=== PATIENT | female | born 1975 | race Caucasian/White ===

== ENCOUNTER 2023-02-28 22:49 | Emergency (ER) | payer BC, SELFPAY ==
--- NOTE | ~2023-02-28 | XR_ITS ---
EXAMINATION: XR HAND, LEFT CLINICAL INFORMATION: Status post ORIF left thumb COMPARISON: None available. TECHNIQUE: PA, lateral, and oblique views of the left hand. FINDINGS: There are 2 wires traversing the first metacarpophalangeal joint. Hardware appears intact. Osseous alignment throughout the hand is anatomic. No acute fracture is seen. No significant focal soft tissue abnormality identified. XR/XR hand LT 2V IMPRESSION: Wires traversing the first metacarpophalangeal joint. No additional acute findings identified.
[2023-02-28 22:51] VITALS: BP 126/88; PULSE 108; RESP 18; TEMP 36.5; O2SAT 98; BMI 39.1
[2023-03-01 00:47] VITALS: BP 122/77; PULSE 82; RESP 17; TEMP 36.4; O2SAT 100
--- NOTE | 2023-03-01 01:18 | ED_ITS ---
HPI - General Adult General Chief complaint: General Medical Stated complaint: pins are protruding skin from rec. surgery Time Seen by Provider: 03/01/23 01:18 Source: patient Mode of arrival: ambulatory Limitations: no limitations History of Present Illness HPI narrative: Patient had ORIF left thumb 4 weeks ago came from [place] as she feels wire is protruding under the skin unable to wear the splint and has pain no recent injury Related Data Previous Rx's Medication Instructions Recorded oxycodone-acetaminophen 5 mg-325 1 tab PO Q6H PRN pain #20 tabs 03/01/23 mg tablet (Percocet) Allergies Allergy/AdvReac Type Severity Reaction Status Date / Time No Known Allergies Allergy Verified 03/01/23 01:16 Review of Systems Review of Systems: Yes all other systems are reviewed and are negative [facility] Social History Social History Alcohol intake: never Smoked in Last 30 Days: No Use of substances other than those prescribed or required for medical reasons: No Advance Directives: No Advance Directives Information Provided: Yes Physical Exam ED Vital Signs: Vital Signs - 24 hr 02/28/23 22:51 03/01/23 00:47 Temperature 97.7 F 97.6 F Pulse Rate 108 H 82 Respiratory Rate 18 17 Blood Pressure 126/88 122/77 Pulse Oximetry 98 100 Oxygen Delivery Method Room Air BMI result Body Mass Index 39.1 Extrem Other: Tender to touch at the base of proximal phalanx of left thumb no signs of infection neurovascular intact Medications Administered Discontinued Medications Generic Name Dose Route Start Last Admin Trade Name Freq PRN Reason Stop Dose Admin Oxycodone HCl 10 mg 03/01/23 01:42 03/01/23 01:49 Oxycodone Hcl Immed Release 5 Mg Tablet PO 03/01/23 01:43 10 mg ONCE ONE Administration Medical Decision Making Medical Decision Making MDM Narrative: Dressing applied with soft padding at the site of ORIF left thumb pain since place patient had will be following with surgeon next week Discharge Plan Discharge Clinical Impression: Pain of left thumb Patient Disposition: Home, Self-Care Instructions: Thumb Fracture (ED) Additional Instructions: Follow-up with your surgeon next week Wear the splint and take pain medication as prescribed Prescriptions: New oxycodone-acetaminophen [Percocet] 5-325 mg tablet 1 tab PO Q6H PRN (Reason: pain) Qty: 20 0RF Rx Instructions: Partial Fill upon patient request. Interventions: ED Discharge Assessment Last Done: 03/01/23 01:51 Discharge Date/Time: 03/01/23 01:58
[2023-03-01] MEDS: oxyCODONE HCl Immed Release 5 MG TABLET 10 MG PO (01:49)
== END 2023-03-01 01:58 | disposition home or self-care (01) ==
PROVIDERS: Emergency Provider Internal Medicine
DX: M79.645 Pain in left finger(s) (principal)
CPT/HCPCS: 73120; 99283; 99284